=== PATIENT | female | born 1970 | race Caucasian/White ===

== ENCOUNTER 2018-11-26 21:45 | Emergency (ER) | payer SELFPAY ==
[2018-11-26] MEDS ORDERED: ADRENALINE P/F SUB-Q PRN (22:00)
[2018-11-26] MEDS ORDERED: PROVENTIL IH ONE ×2 (22:00→22:05)
[2018-11-26] MEDS ORDERED: ATROVENT IH ONE ×2 (22:00→22:05)
[2018-11-26] MEDS ORDERED: ADRENALINE P/F ONE ×2 (22:00→22:52)
[2018-11-26] MEDS ORDERED: NACL 0.9% 500 ML 500 ML IV ONE (22:00)
[2018-11-26] MEDS ORDERED: NACL 0.9% 500 ML 500 ML ONE (22:05)
--- NOTE | 2018-11-27 01:53 | Emergency Department Report ---
ED Asthma HPI - General Chief Complaint: Adult Asthma Time Seen by Provider: 11/27/18 01:44 Source: patient, EMS (ems notes not available at time of chart dictation), RN notes reviewed Mode of arrival: Stretcher Limitations: No Limitations - History of Present Illness Initial Comments: Jennie Islas Room 1. Please note that medical record system is currently down, and access to patients old medical records is not possible at this time. ems notes not available at time of chart dictation This is a 48-year-old female. The patient does not have a local primary care doctor. The patient reports that she is not . The patient has a past medical history of asthma. Reports onset at the age of 3, thinks shes had 1 lifetime hospitalization and no intubations. Presents to the emergency room with a complaint of painless cough, wheezing, shortness of breath. Symptoms started today. Theyre constant. They worsen physical exertion. It decreased with medication and with rest. Apparently, emergency medical services were contacted, the patient was given nebulizers in the field, steroids in the field, 4 g of magnesium sulfate. She denies headache, neck pain, chest pain, abdominal pain, leg pain and leg swelling. The patient denies DVT, pulmonary embolus risk factors. MD Complaint: "asthma attack", shortness of breath, wheezing -: Sudden Asthma History: childhood onset Severity: moderate Associated Symptoms: dry cough Treatments Prior to Arrival: inhaled bronchodilator, IV steroid, other - Related Data Allergies Allergy/AdvReac Type Severity Reaction Status Date / Time No Known Allergies Allergy Verified 11/27/18 03:37 ED Review of Systems ROS: Stated complaint: Other details as noted in HPI Constitutional: malaise Eyes: denies: eye discharge ENT: congestion Respiratory: cough, shortness of breath, SOB with exertion, wheezing Cardiovascular: denies: chest pain Gastrointestinal: denies: abdominal pain Genitourinary: denies: dysuria Musculoskeletal: denies: arthralgia Skin: denies: lesions Neurological: weakness Psychiatric: anxiety ED Physical Exam - General Limitations: Physical Limitation General appearance: alert, anxious, in distress, obese - Head Head exam: Present: atraumatic, normocephalic - Eye Eye exam: Present: normal appearance, EOMI. Absent: nystagmus - ENT ENT exam: Present: normal exam, normal orophraynx, mucous membranes moist, normal external ear exam - Neck Neck exam: Present: normal inspection, full ROM. Absent: tenderness, meningismus - Respiratory Respiratory exam: Present: respiratory distress, wheezes, stridor - Cardiovascular Cardiovascular Exam: Present: normal rhythm, tachycardia, normal heart sounds. Absent: systolic murmur, diastolic murmur, rubs, gallop - GI/Abdominal GI/Abdominal exam: Present: soft. Absent: distended, tenderness, guarding, rebound, rigid, pulsatile mass - Extremities Exam Extremities exam: Present: normal inspection, full ROM, other (2+ pulses noted in the bilateral upper, lower extremities. Compartments soft. No long bony tenderness. The pelvis is stable.). Absent: pedal edema, joint swelling, calf tenderness - Back Exam Back exam: Present: normal inspection, full ROM. Absent: tenderness, CVA tenderness (R), CVA tenderness (L), paraspinal tenderness, vertebral tenderness - Neurological Exam Neurological exam: Present: alert, normal gait, other (Extraocular movements intact. Tongue midline. No facial droop. Facial sensation intact to light touch in the V1, V2, V3 distribution bilaterally. 5 and 5 strength in 4 extremities.. Sensation is intact to light touch in 4 extremities.). Absent: motor sensory deficit - Psychiatric Psychiatric exam: Present: anxious - Skin Skin exam: Present: warm, dry, intact, normal color. Absent: rash ED Course Vital Signs 11/26/18 11/26/18 22:07 23:10 Pulse Rate [ 100 H 110 H Anterior Bilateral Throughout] Respiratory 19 17 Rate [Anterior Bilateral Throughout] ED Medical Decision Making - Lab Data Vital Signs 11/26/18 11/26/18 22:07 23:10 Pulse Rate [ 100 H 110 H Anterior Bilateral Throughout] Respiratory 19 17 Rate [Anterior Bilateral Throughout] please see downtime notes for complete vital signs - EKG Data -: EKG Interpreted by Me EKG shows normal: sinus rhythm Rate: tachycardia - EKG Data When compared to previous EKG there are: previous EKG unavailable 11/27/18 01:52 EKG: No prior for comparison. Sinus tachycardia, 101 bpm, normal axis, QTC prolonged, motion artifact, low voltage noted, this is an abnormal EKG. This EKG is not consistent with ST elevation myocardial infarction. - Radiology Data Radiology results: image reviewed interpreted by me: X-ray of the chest appears to be unremarkable for acute disease. - Medical Decision Making EKG: No prior for comparison. Sinus tachycardia, 101 bpm, normal axis, QTC prolonged, motion artifact, low voltage noted, this is an abnormal EKG. This EKG is not consistent with ST elevation myocardial infarction. Differential diagnosis, including but not limited to: Pneumonia, bronchitis, asthma exacerbation Assessment and plan: 48-year-old female, known history of asthma, reports no DVT or pulmonary embolus risk factors, specifically denies oral contraceptive use, , control use, travel, surgeries, immobilization, presented with painless cough, wheezing, rhonchi, shortness of breath. Somewhat labored, patient will be given albuterol, Atrovent, subcutaneous epinephrine, IV fluids, and will be reassessed. So far, the patient has received 2 rounds of subcutaneous epinephrine, and the aforementioned therapy, and is somewhat improved. However, she is still wheezing. Tachycardia reviewed and appreciated, likely secondary to the aforementioned medications. 11/27/2018. 12:33 AM. The patient is reassessed. Slightly tachycardic, although improving. Saturating at 94%, and when ambulatory, saturating at 93, 94%. Her work of breathing is much improved. So slightly rhonchorous, but able to ambulate without significant desaturation. We would expect some VQ mismatch given her history of asthma. We would expect tachycardia from albuterol and epinephrine. Patient reports that she feels much improved. X-ray of the chest appears to be unremarkable. Screening laboratory studies so far appeared to be unremarkable. Please note that the troponin was resulted by the laboratory, however, I did not order a troponin. Nevertheless, given the history and physical, I think the patients presentation is unlikely to be acute coronary syndrome, and I find her to be low risk by the heart score. The patient is suitable for a trial of outpatient management. She understands that she will need to closely follow up with an outpatient primary care doctor. Patient endorses that she is reliable to follow-up. Patient will be discharged with albuterol, salmeterol, steroids, and instructions to follow-up as an outpatient. Critical care attestation.: If time is entered above; I have spent that time in minutes in the direct care of this critically ill patient, excluding procedure time. ED Disposition Clinical Impression: Asthma exacerbation Qualifiers: Asthma severity: moderate Asthma persistence: unspecified Qualified Code(s): J45.901 - Unspecified asthma with (acute) exacerbation Disposition: - TO HOME OR SELFCARE Is pt being admited?: No Does the pt Need Aspirin: No Condition: Stable Additional Instructions: Jennie Islas Discharge diagnosis: Asthma exacerbation Take medications as needed/directed. Use the breathing treatment the next 5 days. Take the steroids for the next 4 days. Follow-up in 2-3 days for repeat checkup/evaluation. The patient may follow up with the primary care doctor, urgent care center, will return to this emergency room for a repeat checkup/evaluation. Please return to the emergency room right away with new, worsening or different symptoms, or symptoms not present on the initial emergency room evaluation. Local primary care clinics include the [facility]. Alternatively, patient may elect to follow up with her outpatient primary care doctor. [facility]: Address:[address] [place] [address], [place] [address] Hours: Closed Opens 8AM Diagnstico de andrew: exacerbacin del asma Raymond los medicamentos segn sea necesario / dirigido. Use el tratamiento de respiracin los prximos 5 pedroza. Raymond los esteroides rojelio los prximos 4 pedroza. Seguimiento en 2-3 pedroza para repetir el chequeo / evaluacin. El paciente puede hacer un seguimiento con el mdico de atencin primaria, el centro de atencin de urgencias, volver a esta sylvain de emergencias para un examen / evaluacin repetidos. Regrese a la sylvain de emergencias de inmediato con sntomas nuevos, que empeoran o diferentes, o sntomas que no se presentan en la evalu acin inicial de la sylvain de emergencias. Las clnicas locales de atencin primaria incluyen la clnica mdica del lado teresa. Alternativamente, el paciente puede elegir hacer un seguimiento con méndez mdico de atencin primaria ambulatoria. Clnica mdica del lado teresa: Direccin: [address] [facility], [place] [address] Horas: Dwight Brown 8AM [place]elf[place]: Referrals: PRIMARY CARE, [Primary Care Provider] - 3-5 Days
--- NOTE | 2018-11-27 01:58 | XRay Report ---
PROCEDURE: XR CHEST 1V AP TECHNIQUE: Chest radiograph single view. HISTORY: SOB COMPARISONS: None . FINDINGS: Heart: Normal. Mediastinum/Vessels: Normal. Lungs/Pleural space: Normal. Bony thorax: No acute osseous abnormality. Life support devices: None. IMPRESSION: No acute cardiopulmonary abnormality. This document is electronically signed by Lamont Snow MD., November 27 2018 01:56:34 AM ET
== END 2018-11-27 03:56 | disposition home or self-care (01) ==
LOC: ED 21:45
DX: J45.901 Unspecified asthma with (acute) exacerbation (principal)
CPT/HCPCS: 71045; 93005; 93010; 94640; J0171; J7040